=== PATIENT | female | born 1990 | race Caucasian/White ===

== ENCOUNTER 2017-11-12 16:11 | Emergency (ER) | payer MEDICAID ==
[2017-11-12 16:18] VITALS: BP 109/70
[2017-11-12] MEDS ORDERED: ONDANSETRON 4 MG TAB.RAPDIS PO ONE (16:45)
[2017-11-12] MEDS ORDERED: ONDANSETRON ODT 4 MG TAB (6 TAB/ER DISP) PO PRN (16:45)
--- NOTE | 2017-11-12 16:55 | ER Document Report ---
ED General - General Chief Complaint: Nausea/Vomiting/Diarrhea Stated Complaint: VOMITING/DIARRHEA Time Seen by Provider: 11/12/17 16:44 TRAVEL OUTSIDE OF THE [place] IN LAST 30 DAYS: No - HPI Patient complains to provider of: Nausea vomiting diarrhea Notes: Pt presents to the ED with complaints n/v/d x 3 days. Pt claims she believed she "had the flu" but wanted to seek medical attention for persistent issues. Pt claims her symptoms increased this morning at work. Pt reports pain to her lower abdomen with no improvement. Pt denies any injury and or event that may have caused the pain. Pt claims to have taken ibuprofen with little relief. Pt denies any family and or close friends that are ill. Denies any recent antibiotics denies any recent travel or new pets in the household. - Related Data Allergies/Adverse Reactions: No Known Allergies Allergy (Verified 03/07/14 06:13) Past Medical History - Social History Smoking Status: Current Every Day Smoker Chew tobacco use (# tins/day): No Frequency of alcohol use: None Drug Abuse: None Family History: Reviewed & Not Pertinent Patient has suicidal ideation: No Patient has homicidal ideation: No Renal/ Medical History: Denies: Hx Peritoneal Dialysis Past Surgical History: Reports: Hx Cholecystectomy Review of Systems - Review of Systems Constitutional: No symptoms reported EENT: No symptoms reported Cardiovascular: No symptoms reported Respiratory: No symptoms reported Gastrointestinal: Diarrhea, Nausea, Vomiting Genitourinary: No symptoms reported Female Genitourinary: No symptoms reported Musculoskeletal: No symptoms reported Skin: No symptoms reported Hematologic/Lymphatic: No symptoms reported Neurological/Psychological: No symptoms reported -: Yes All other systems reviewed and negative Physical Exam - Vital signs Vitals: Temp Pulse Resp BP Pulse Ox 97.9 F 56 L 16 109/70 96 11/12/17 16:16 11/12/17 16:16 11/12/17 16:16 11/12/17 16:16 11/12/17 16:16 Interpretation: Normal - General General appearance: Appears well, Alert - HEENT Head: Normocephalic, Atraumatic Eyes: Normal Pupils: PERRL - Respiratory Respiratory status: No respiratory distress Chest status: Nontender Breath sounds: Normal Chest palpation: Normal - Cardiovascular Rhythm: Regular Heart sounds: Normal auscultation Murmur: No - Abdominal Inspection: Normal Distension: No distension Bowel sounds: Normal Tenderness: Nontender Organomegaly: No organomegaly - Back Back: Normal, Nontender - Extremities General upper extremity: Normal inspection, Nontender, Normal color, Normal ROM , Normal temperature General lower extremity: Normal inspection, Nontender, Normal color, Normal ROM , Normal temperature, Normal weight bearing. No: Manan's sign - Neurological Neuro grossly intact: Yes Cognition: Normal Orientation: AAOx4 [place] Coma Scale Eye Opening: Spontaneous Marcus Coma Scale Verbal: Oriented Marcus Coma Scale Motor: Obeys Commands [place] Coma Scale Total: 15 Speech: Normal Motor strength normal: LUE, RUE, LLE, RLE Sensory: Normal - Psychological Associated symptoms: Normal affect, Normal mood - Skin Skin Temperature: Warm Skin Moisture: Dry Skin Color: Normal Course - Re-evaluation Re-evalutation: 11/12/17 20:53 Patient's physical examination was benign. Spines and patient her HPI does sound like more likely a viral gastroenteritis that is going around the community. Since the patient W establish an IV to give her IV antiemetics and check basic laboratory studies patient declines these measure stating that she only wants something for nausea patient declines any Bentyl for abdominal pain to as well. Patient was given prescriptions for Zofran and Phenergan and was discharged at her request - Vital Signs Vital signs: Temp Pulse Resp BP Pulse Ox 97.9 F 56 L 16 109/70 96 11/12/17 16:16 11/12/17 16:16 11/12/17 16:16 11/12/17 16:16 11/12/17 16:16 Discharge - Discharge Clinical Impression: Nausea vomiting and diarrhea Condition: Good Disposition: HOME, SELF-CARE Instructions: Gastroenteritis (adult) (OM), Nausea or Vomiting, Nonspecific ( OM) Additional Instructions: Description of very symptoms are consistent with a viral gastroenteritis your examination does not reveal any critical pathology. Take medication as prescribed return to ER for any other concerns. Prescriptions: Ondansetron [Zofran Odt 4 mg Tablet] 4 mg PO Q4HP PRN #30 tab.rapdis PRN Reason: Promethazine HCl [Phenergan 25 mg Tablet] 25 - 50 mg PO ASDIR PRN #30 tablet PRN Reason: Referrals: SORAIDA ELMORE MD [Primary Care Provider] - Follow up as needed
== END 2017-11-12 16:58 | disposition home or self-care (01) ==
LOC: ER 16:11
DX: R11.2 Nausea with vomiting, unspecified (principal); R19.7 Diarrhea, unspecified; R10.30 Lower abdominal pain, unspecified; F17.200 Nicotine dependence, unspecified, uncomplicated; Z90.49 Acquired absence of other specified parts of digestive tract
CPT/HCPCS: 99283; S0119

== ENCOUNTER 2019-08-26 07:36 | Emergency (ER) | payer SELFPAY ==
[2019-08-26 07:41] VITALS: BP 120/61
[2019-08-26] MEDS ORDERED: BUPIVACAINE HCL 0.5 % INJ/PF 30 ML SDV INJ ONE (08:00)
[2019-08-26] MEDS ORDERED: DIPH/PERTUSS(ACELL)/TETANUS VAC/PF 0.5 ML SYR (>=10YO) IM ONE (08:13)
--- NOTE | 2019-08-26 08:18 | ER Document Report ---
ED Hand/Wrist Injury - General Chief Complaint: Finger Injury Stated Complaint: HAND PAIN Time Seen by Provider: 08/26/19 07:54 Primary Care Provider: SORAIDA ELMORE MD [ACTIVE STAFF] - Follow up as needed Notes: CHIEF COMPLAINT: CHIEF COMPLAINT: Left index finger pain HPI: 29-year-old female presenting to the emergency department for pain on the ulnar aspect of the distal tip of the left index finger over the last 1 to 2 days. Patient states that she was moving some fishing poles and a hook stuck her under the nail on the ulnar side of the left distal index finger. Patient was able to remove the hook. She does have possible history of MRSA. Patient was concerned about pain and swelling to the distal fingertip. Patient is not up-to-date on her tetanus vaccination she denies other injuries or complaints ROS: See HPI - all other systems were reviewed and are otherwise negative Constitutional: no fever Integumentary: + rash Allergy: no hives Musculoskeletal: + extremity pain or swelling Neurological: no numbness/tingling, no weakness MEDICATIONS: I agree with the patient medications as charted by the RN. ALLERGIES: I agree with the allergies as charted by the RN. PAST MEDICAL HISTORY/PAST SURGICAL HISTORY: Reviewed and agree as charted by RN. SOCIAL HISTORY: Reviewed and agree as charted by RN. FAMILY HISTORY: No significant familial comorbid conditions directly related to patient complaint EXAM: Reviewed vital signs as charted by RN. CONSTITUTIONAL: Alert and oriented and responds appropriately to questions. Well-appearing; well-nourished HEAD: Normocephalic; atraumatic EYES: Conjunctivae clear, sclerae non-icteric ENT: normal nose; no rhinorrhea; moist mucous membranes NECK: Supple without meningismus CARD: RESP: Normal chest excursion without splinting or tachypnea ABD/GI: non-distended BACK: The back appears normal EXT: Normal ROM in all joints; no cyanosis, no effusions, no edema. Small tender area of erythema with fluctuance adjacent to the nail on the ulnar side distal tip of the index finger suggesting a paronychia SKIN: Normal color for age and race; warm; dry; good turgor NEURO: Moves all extremities equally; Motor and sensory function intact PSYCH: The patient's mood and manner are appropriate. Grooming and personal hygiene are appropriate. MDM: 29-year-old female with a small paronychia on the ulnar aspect of the distal index finger left hand. Patient is moderately tender. Will digitally block for comfort, make a superficial stab incision to drain the area. She is concerned about MRSA, will place patient on a short course of antibiotics. She does not wish pain medications other than ibuprofen TRAVEL OUTSIDE OF THE [place] IN LAST 30 DAYS: No - Related Data Allergies/Adverse Reactions: No Known Allergies Allergy (Verified 08/26/19 07:49) Past Medical History - Social History Smoking Status: Current Every Day Smoker Chew tobacco use (# tins/day): No Frequency of alcohol use: None Drug Abuse: None Family History: Reviewed & Not Pertinent Patient has homicidal ideation: No Renal/ Medical History: Denies: Hx Peritoneal Dialysis Past Surgical History: Reports: Hx Cholecystectomy Physical Exam - Vital signs Vitals: Temp Pulse Resp BP Pulse Ox 97.4 F 65 16 120/61 97 08/26/19 07:40 08/26/19 07:40 08/26/19 07:40 08/26/19 07:40 08/26/19 07:40 Course - Vital Signs Vital signs: Temp Pulse Resp BP Pulse Ox 97.4 F 65 16 120/61 97 08/26/19 07:50 08/26/19 07:40 08/26/19 07:40 08/26/19 07:40 08/26/19 07:40 Procedures - Incision and Drainage Left Distal Finger 2nd digit Time completed: 08:41 Type: Simple Anesthetic type: 0.5% Bupivacaine - digital block mL's of anesthetic: 2 Blade size: 11 I&D procedure: Shurclens applied, Sterile dressing applied Incision Method: Incision made by scalpel Amount/type of drainage: < 1cc Discharge - Discharge Clinical Impression: Paronychia Condition: Stable Disposition: HOME, SELF-CARE Instructions: Paronychia ([facility]) Additional Instructions: Take the medications as prescribed. Ibuprofen for pain. Warm salt water soaks 3-4 times daily to help keep the wound area clean. Follow-up with primary care provider for reevaluation otherwise return for worsening redness or swelling Prescriptions: Sulfamethoxazole/Trimethoprim [Bactrim Ds Tablet] 2 tab PO BID #28 tablet Ibuprofen [Motrin 600 Mg Tablet] 600 mg PO Q6H #15 tablet Referrals: SORAIDA ELMORE MD [ACTIVE STAFF] - Follow up as needed
== END 2019-08-26 08:46 | disposition home or self-care (01) ==
LOC: ER 07:36
PROC: 0H9GXZZ Drainage of Left Hand Skin, External Approach (ICD-10-PCS; principal; 2019-08-26)
DX: L03.012 Cellulitis of left finger (principal); S60.451A Superficial foreign body of left index finger, initial encounter; M79.645 Pain in left finger(s); R21 Rash and other nonspecific skin eruption; M79.89 Other specified soft tissue disorders; W45.8XXA Other foreign body or object entering through skin, initial encounter; F17.200 Nicotine dependence, unspecified, uncomplicated
CPT/HCPCS: 99283; 90471; 90715; 26010; J3490